=== PATIENT | male | born 1990 | race Caucasian/White ===

== ENCOUNTER 2016-11-02 01:06 | Emergency (ER) | payer BC ==
[~2016-11-02] VITALS: Ht 193 cm; Wt 90.6 kg
[~2016-11-02 01:06] MED LIST: DEXAMETHASONE0.5 MG PO; DIAZEPAM5 MG PO; MEDROL DOSEPAK4 MG PO; OXYCODONE-APAP1 EACH PO
[2016-11-02 01:51] LABS: ADD MIUA? NO; BILIRUBIN NEGATIVE; BLOOD NEGATIVE; COLOR YELLOW ((YELLOW)); GLUCOSE (STRIP) NEGATIVE; KETONES NEGATIVE; LEUKOCYTES NEGATIVE; NITRITE NEGATIVE; PROTEIN (STRIP) NEGATIVE; SPECIFIC GRAVITY 1.028 (1.000-1.030); UCUL ADDED? NO; UROBILINOGEN 0.2 MG/DL (0.2-1.0)
[2016-11-02 02:06] LABS: HEMATOCRIT 42.6 % (38.0-50.0); MCH 28.2 PG (29.0-34.0); MCHC 33.8 G/DL (30.0-36.0); MCV 83.5 FL (86-99); MEAN PLAT.VOLUME 11.4 uM^3 (9.0-12.4); PLATELET COUNT 178 K/uL (156-360); RBC DIS.WIDTH-SD 39.6 % (39-53)
[2016-11-02 02:21] LABS: CHLORIDE 104 mEq/L (99-109); POTASSIUM 4.1 mEq/L (3.7-5.4); SODIUM 139 mEq/L (136-147)
[2016-11-02 02:23] LABS: GLUCOSE 55 mg/dL (70-99)
[2016-11-02 02:24] LABS: ANION GAP 10 MEQ/L (2-14)
[2016-11-02 02:25] LABS: TOTAL BILIRUBIN 0.6 mg/dL (0.0-1.0)
[2016-11-02 02:27] LABS: ALKALINE PHOSPHATASE 61 IU/L (3-129); GFR ESTIMATE (CALCULATED) > 59 mL/min/
[2016-11-02 02:28] LABS: UREA NITROGEN (BUN) 19 mg/dL (9-23)
[2016-11-02 02:30] LABS: LIPASE 23 U/L (1.0-51.0)
[2016-11-02 03:47] LABS: POINT-OF-CARE METER ID UU13113778
[2016-11-02 05:22] LABS: TROP-I INTERPRETATION NEGATIVE; TROPONIN-I < 0.01 ng/mL (0.0-0.30)
[2016-11-02] MEDS ORDERED: PEPCID20 MG PO (05:36)
[2016-11-02 06:23] LABS: INTERNAL CONTROL VALID? YES; MONOSPOT (MONONUCLEOSIS SEROL) NEGATIVE
[2016-11-02 09:16] VITALS: BP 106/63
== END 2016-11-02 09:26 | disposition home or self-care (01) ==
LOC: EME 01:06
DX: R10.32 Left lower quadrant pain (principal); R10.12 Left upper quadrant pain; K29.00 Acute gastritis without bleeding; E16.2 Hypoglycemia, unspecified
CPT/HCPCS: 71020; 74177; 80053; 81003; 82948; 83690; 84484; 85027; 86308; 93005; 99281; 99285